=== PATIENT | female | born 1975 | race Caucasian/White ===

== ENCOUNTER 2020-10-02 13:37 | Emergency (ER) | payer OTHER ==
[~2020-10-02] VITALS: Ht 165.1 cm; Wt 64.0 kg
[2020-10-02] MEDS ORDERED: PROTONIX40 M2 PO (13:46)
[2020-10-02] MEDS ORDERED: LEXAPRO20 MG PO (13:46)
[2020-10-02] MEDS ORDERED: ALPRAZOLAM XR3 MG PO (13:47)
[2020-10-02] MEDS ORDERED: PREDNISOLONE ACE5 ML OPHTHALMIC (13:47)
[2020-10-02 14:06] LABS: HEMOGLOBIN 13.2 gm/dL (12.0-15.0); NUCLEATED RBCS 0 /100WBC
[2020-10-02 14:08] LABS: HEMATOCRIT 39.3 % (37.0-47.0); MCHC 33.5 g/dL (28.0-37.0); MCV 92.4 fL (80.0-100.0); MPV 9.9 fl. (7.2-11.1); PLATELET COUNT* 152 thou/uL (150-400); RBC 4.25 mil/uL (4.20-5.00); RDW-CV 12.9 % (10.5-14.5); WBC 10.2 thou/uL (4.0-11.0)
[2020-10-02 14:27] LABS: CALCIUM 8.6 mg/dL (8.5-10.1); CREATININE 0.9 mg/dL (0.6-1.3); POTASSIUM 3.4 mmol/L (3.5-5.1)
[2020-10-02 14:51] LABS: ABSOLUTE BASOPHILS 0.1 thou/uL (0.0-0.2); ABSOLUTE EOSINOPHILS 0.1 thou/uL (0.0-0.7); ABSOLUTE LYMPHOCYTES 2.8 thou/uL (0.8-5.3); ABSOLUTE MONOCYTES 0.7 thou/uL (0.0-1.2); ABSOLUTE NEUTROPHILS 6.5 thou/uL (1.6-8.1); ATYPICAL LYMPHS 5 %; PLATELET ESTIMATE ADEQUATE
[2020-10-02 15:11] LABS: ALBUMIN 3.9 g/dL (3.4-5.0); TOTAL BILIRUBIN 0.5 mg/dL (<0.1-1.0); TOTAL PROTEIN 6.9 g/dL (6.4-8.2)
[2020-10-02 16:14] VITALS: BP 132/70
--- NOTE | 2020-10-02 18:11 | EKG ---
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[facility] : 1975 Requested By: Gurwinder Shearer Order Number: [id number] MD: Jayy Martins Measurements Intervals [place] Rate: 81 P: 80 [place]: 127 QRS: 86 QRSD: 101 T: 63 QT: 366 QTc: 425 Interpretive Statements Sinus rhythm Low voltage, precordial leads Possible anteroseptal infarct, old No previous ECG available for comparison Electronically Signed On 10-02-2020 18:11:11 [employer] by Jayy Martins [email or web address] <ELECTRONICALLY SIGNED> By: Jayy Martins MD, [facility] 10/02/20 181 1344 134 Jayy Martins MD, [facility] /EPI
== END 2020-10-02 16:15 | disposition home or self-care (01) ==
LOC: M.ERS 13:37
PROVIDERS: Emergency Medicine Emergency Medical Services
DX: R00.2 Palpitations (principal); Z87.891 Personal history of nicotine dependence